=== PATIENT | female | born 1990 | race Caucasian/White ===

== ENCOUNTER 2019-01-09 19:17 | Emergency (ER) | payer MEDICAID, OTHER ==
[2019-01-09 20:49] LABS: ADD MAN DIFF? NO
[2019-01-09] MEDS: ONDANSETRON 4 MG INJ IV (20:50)
[2019-01-09] MEDS: SOD CHLORIDE 0.9% 1,000 ML IV (20:50)
[2019-01-09] MEDS: ACETAMINOPHEN 325 MG TAB PO (20:50)
[2019-01-09 20:52] LABS: BASOPHIL # 0.1 10^3/ul (0.0-0.1); BASOPHILS % 0.9 % (0.0-2.0); EOSINOPHILS # 0.4 10^3/ul (0.0-0.5); EOSINOPHILS % 5.5 % (0.0-7.0); HEMATOCRIT 41.1 % (37.0-47.0); HEMOGLOBIN 14.3 g/dl (12.0-16.0); LYMPHOCYTES # 2.6 10^3/ul (0.8-2.9); LYMPHOCYTES % 34.3 % (15.0-51.0); MEAN CORPUSCULAR HEMOGLOBIN 31.9 pg (29.0-33.0); MEAN CORPUSCULAR HGB CONC 34.8 g/dl (32.0-37.0); MEAN CORPUSCULAR VOLUME 91.7 fl (82.0-101.0); MEAN PLATELET VOLUME 9.8 fl (7.4-10.4); MONOCYTE # 0.5 10^3/ul (0.3-0.9); NEUTROPHIL # 3.9 10^3/ul (1.6-7.5); NEUTROPHILS % 51.9 % (39.0-77.0); PLATELET COUNT 274 10^3/UL (140-415); RED BLOOD COUNT 4.48 10^6/ul (4.20-5.40); RED CELL DISTRIBUTION WIDTH 12.3 % (11.5-14.5)
[2019-01-09 20:52] LABS: WHITE BLOOD COUNT 7.4 10^3/ul (4.8-10.8)
[2019-01-09 21:13] LABS: ALANINE AMINOTRANSFERASE 24 IU/L (13-69); ALBUMIN 4.8 g/dl (3.3-4.9); ALBUMIN/GLOBULIN RATIO 1.41; ALKALINE PHOSPHATASE 66 IU/L (42-121); ANION GAP 11 (5-13); ASPARTATE AMINO TRANSFERASE 24 IU/L (15-46); BILIRUBIN,INDIRECT 0.6 mg/dl (0-1.1); BILIRUBIN,TOTAL 0.6 mg/dl (0.2-1.3); BLOOD UREA NITROGEN 11 mg/dl (7-20); CALCIUM 9.4 mg/dl (8.4-10.2); CARBON DIOXIDE 26 mmol/L (21-31); CHLORIDE 106 mmol/L (97-110); CREATININE 0.58 mg/dl (0.44-1.00); Estimated GFR > 60 mL/min (>60); GLUCOSE 97 mg/dl (70-220); LIPASE 225 U/L (23-300); POTASSIUM 3.4 mmol/L (3.5-5.1); SODIUM 143 mmol/L (135-144); TOTAL PROTEIN 8.2 g/dl (6.1-8.1)
[2019-01-09 21:17] LABS: ADD UMIC YES; UR AMORPHOUS CRYSTAL MANY /HPF (NONE SEEN); UR ASCORBIC ACID NEGATIVE (NEGATIVE); UR BILIRUBIN (Dip) NEGATIVE (NEGATIVE); UR BLOOD (Dip) NEGATIVE (NEGATIVE); UR CLARITY TURBID (CLEAR); UR COLOR YELLOW (YELLOW); UR GLUCOSE (Dip) NEGATIVE (NEGATIVE); UR KETONES (Dip) NEGATIVE (NEGATIVE); UR LEUKOCYTE ESTERASE (Dip) NEGATIVE Leu/ul (NEGATIVE); UR NITRITE (Dip) NEGATIVE (NEGATIVE); UR RBC 0 /HPF (0-5); UR SPECIFIC GRAVITY (Dip) 1.014 (1.003-1.030); UR SQUAMOUS EPITHELIAL CELL FEW /HPF (FEW); UR TOTAL PROTEIN (Dip) NEGATIVE (NEGATIVE); UR UROBILINOGEN (Dip) NEGATIVE (NEGATIVE); UR WBC 0 /HPF (0-5)
[2019-01-09] MEDS ORDERED: ONDANSETRON 4 MG INJ IV (22:00)
[2019-01-10] MEDS: ACETAMINOPHEN 325 MG TAB PO ×2 (02:03→09:41)
== END 2019-01-10 13:10 | disposition home or self-care (01) ==
LOC: E/R 01-10 13:10 → FTE 19:17
DX: O26.892 Other specified pregnancy related conditions, second trimester (principal); R51 Headache; O02.1 Missed abortion
CPT/HCPCS: 36415; 76801; 76817; 80053; 81001; 83690; 84702; 85025; 86900; 86901; 96374; 99285-25

== ENCOUNTER 2019-01-11 01:44 | Observation (INO) | payer MEDICAID ==
[2019-01-11] MEDS: morphine 4 MG/ML VIAL IV ×2 (02:09→04:22)
[2019-01-11] MEDS: SOD CHLORIDE 0.9% 1,000 ML IV (02:09)
[2019-01-11] MEDS: ONDANSETRON 4 MG INJ IV ×4 (02:09→11:25)
[2019-01-11 02:14] LABS: ADD MAN DIFF? NO
[2019-01-11 02:16] LABS: WHITE BLOOD COUNT 11.9 10^3/ul (4.8-10.8)
[2019-01-11 02:16] LABS: BASOPHIL # 0.1 10^3/ul (0.0-0.1); BASOPHILS % 0.4 % (0.0-2.0); EOSINOPHILS # 0.1 10^3/ul (0.0-0.5); EOSINOPHILS % 1.1 % (0.0-7.0); HEMATOCRIT 40.3 % (37.0-47.0); HEMOGLOBIN 14.4 g/dl (12.0-16.0); LYMPHOCYTES # 2.4 10^3/ul (0.8-2.9); LYMPHOCYTES % 19.9 % (15.0-51.0); MEAN CORPUSCULAR HEMOGLOBIN 31.9 pg (29.0-33.0); MEAN CORPUSCULAR HGB CONC 35.7 g/dl (32.0-37.0); MEAN CORPUSCULAR VOLUME 89.2 fl (82.0-101.0); MEAN PLATELET VOLUME 9.6 fl (7.4-10.4); MONOCYTE # 0.6 10^3/ul (0.3-0.9); MONOCYTES % 4.8 % (0.0-11.0); NEUTROPHIL # 8.7 10^3/ul (1.6-7.5); NEUTROPHILS % 73.4 % (39.0-77.0); PLATELET COUNT 280 10^3/UL (140-415); RED BLOOD COUNT 4.52 10^6/ul (4.20-5.40); RED CELL DISTRIBUTION WIDTH 11.9 % (11.5-14.5)
[2019-01-11] MEDS: HYDROmorphONE 2 MG/ML SYG IM (02:33)
[2019-01-11 02:38] LABS: ALANINE AMINOTRANSFERASE 23 IU/L (13-69); ALBUMIN/GLOBULIN RATIO 1.35; ALKALINE PHOSPHATASE 83 IU/L (42-121); ANION GAP 13 (5-13); ASPARTATE AMINO TRANSFERASE 26 IU/L (15-46); BILIRUBIN,INDIRECT 0.8 mg/dl (0-1.1); BILIRUBIN,TOTAL 0.8 mg/dl (0.2-1.3); BLOOD UREA NITROGEN 7 mg/dl (7-20); CALCIUM 10.3 mg/dl (8.4-10.2); CARBON DIOXIDE 20 mmol/L (21-31); CHLORIDE 105 mmol/L (97-110); CREATININE 0.62 mg/dl (0.44-1.00); Estimated GFR > 60 mL/min (>60); GLUCOSE 106 mg/dl (70-220); POTASSIUM 3.5 mmol/L (3.5-5.1); SODIUM 138 mmol/L (135-144); TOTAL PROTEIN 8.7 g/dl (6.1-8.1)
[2019-01-11] MEDS: MISOPROSTOL 200 MCG TAB VAG (04:00)
[2019-01-11] MEDS: HYDROmorphONE 0.5 MG/0.5 ML SYG IV ×2 (06:21→08:31)
[2019-01-11] MEDS ORDERED: ACETAMINOPHEN 325 MG TAB PO (07:30)
[2019-01-11] MEDS ORDERED: ONDANSETRON 4 MG INJ IV ×2 (07:30→10:30)
[2019-01-11 07:34] LABS: INR 1.08; PROTIME 14.1 Sec (11.9-14.9); PT RATIO 1.1
[2019-01-11 07:35] LABS: PARTIAL THROMBOPLASTIN TIME 24.5 Sec (23.0-35.0)
[2019-01-11] MEDS ORDERED: LABETALOL HCL 20MG INJ IV (09:00)
[2019-01-11] MEDS ORDERED: DIPHENHYDRAMINE 50 MG INJ IV ×2 (09:00→10:30)
[2019-01-11] MEDS ORDERED: hydrALAzine 20 MG INJ IV (09:00)
[2019-01-11] MEDS ORDERED: FENTAnyl 50 MCG/ML VIAL IV ×3 (09:00→10:30)
[2019-01-11] MEDS ORDERED: OXYCODONE/ACETAMINOPHEN (5/325) TAB PO ×2 (09:00)
[2019-01-11] MEDS ORDERED: HYDROmorphONE 1 MG/5 ML IV SYRINGE IV ×3 (09:00)
[2019-01-11] MEDS ORDERED: EPHEDrine 25 MG/5 ML SYG IV (09:00)
[2019-01-11] MEDS ORDERED: ALBUTEROL 0.083% (NEB) 2.5 MG/3 ML AMP HHN (09:00)
[2019-01-11] MEDS ORDERED: MEPERIDINE 25 MG INJ IV ×2 (09:00→10:30)
[2019-01-11] MEDS ORDERED: morphine 2 MG INJ IV ×3 (09:00→10:30)
[2019-01-11] MEDS ORDERED: MIDAZOLAM 1 MG/ML 2 ML INJ ×2 (09:02→09:14)
[2019-01-11] MEDS ORDERED: FAMOTIDINE 20 MG INJ (09:02)
[2019-01-11] MEDS ORDERED: CLINDAMYCIN 900 MG/D5W (PMX) 50 ML IVPB (09:02)
[2019-01-11] MEDS ORDERED: ONDANSETRON 4 MG INJ (09:02)
[2019-01-11] MEDS ORDERED: LIDOCAINE 2% (SDV) 5 ML INJ (09:02)
[2019-01-11] MEDS ORDERED: PROPOFOL 40 ML (09:02)
[2019-01-11] MEDS ORDERED: DEXAMETHASONE 4 MG/ML 5 ML INJ (09:02)
[2019-01-11] MEDS ORDERED: FENTAnyl 50 MCG/ML VIAL ×2 (09:02→09:15)
[2019-01-11] MEDS ORDERED: ROCURONIUM 50 MG INJ (09:02)
[2019-01-11] MEDS ORDERED: SUCCINYLCHOLINE CHLORIDE 100 MG/5 ML SYG IV (09:04)
[2019-01-11] MEDS ORDERED: OXYTOCIN 10 UNIT INJ ×2 (09:39→09:57)
[2019-01-11] MEDS ORDERED: CEFAZOLIN 1 GM INJ (09:58)
[2019-01-11] MEDS ORDERED: METOCLOPRAMIDE 10 MG INJ IV (10:30)
[2019-01-11] MEDS: ACETAMINOPHEN 500 MG TAB PO (10:40)
[2019-01-11] MEDS: DOXYCYCLINE 100 MG TAB PO (10:40)
[2019-01-11] MEDS: LACTATED RINGER'S 1,000 ML IV (10:41)
== END 2019-01-11 12:46 | disposition home or self-care (01) ==
LOC: REC 08:44 → E/R 01:44 → REC 07:21
DX: O02.1 Missed abortion (principal)
CPT/HCPCS: 36415; 76801; 80053; 84702; 85025; 85384; 85610; 85730; 86850; 86900; 86901; 88305; 96372; 96374; 96375; 96376; 99217; 99285-25